=== PATIENT | male | born 1960 | race African-American/Black ===

== ENCOUNTER → 2018-03-04 | Outpatient (CLI) | payer OTHER | LOC: M LRY 16:50 | DX: M17.11 Unilateral primary osteoarthritis, right knee (principal); M25.462 Effusion, left knee; S89.91XA Unspecified injury of right lower leg, initial encounter; W50.2XXA Accidental twist by another person, initial encounter; Y99.0 Civilian activity done for income or pay | CPT/HCPCS: 73564 ==

== ENCOUNTER → 2018-07-15 | Outpatient (CLI) | payer OTHER ==
--- NOTE | 2018-07-15 19:34 | ECGEPIP ---
Stationary ECG Study [facility] Test Date: 2018-07-15 Pat Name: JASON ALVAREZ Department: Room: - Gender: M Community Relations Rep: EMEKA : 1960 Requested By: WENDY Collins Order Number: [id number] Reading MD: Coty Lin Measurements Intervals [place] Rate: 65 P: 32 CA: 175 QRS: -12 QRSD: 83 T: -30 QT: 395 QTc: 412 Interpretive Statements SINUS RHYTHM NONSPECIFIC T-WAVE ABNORMALITY NO PRIOR Electronically Signed On 07-15-2018 19:34:02 EDT by Coty Lin
== END ==
LOC: M EKG 11:43
PROVIDERS: ATTEND Orthopaedic Surgery
DX: Z01.810 Encounter for preprocedural cardiovascular examination (principal); I10 Essential (primary) hypertension; S83.241D Other tear of medial meniscus, current injury, right knee, subsequent encounter

== ENCOUNTER → 2020-06-15 | Outpatient (CLI) | payer OTHER ==
[2020-06-15 12:57] LABS: IMMUNOGLOBULIN E 73.5 IU/ML (<100); IMMUNOGLOBULIN M 24.5 MG/DL (40-230)
[2020-06-18 00:06] LABS: ALPHA 1 ANTITRYPSIN 135 mg/dL (101-187); D001-IgE D pteronyssinus 1.95 kU/L (Class III); E001-IgE Cat Epith/Dander < 0.10 kU/L (Class 0); E003-IGE HORSE EPITHELIA/DAND <0.10 kU/L (Class 0); E005-IgE Dog Dander 0.15 kU/L (Class 0/I); F004-IgE Wheat 0.14 kU/L (Class 0/I); F026-IgE Pork 0.14 kU/L (Class 0/I); F027-IgE Beef < 0.10 kU/L (Class 0); F245-IgE Egg, Whole 0.85 kU/L (Class II); FX02-IgE Food Mix (Sea Foods) Positive (.); G002-IgE Bermuda Grass 0.29 kU/L (Class 0/I); G008-IgE Kentucky Bluegrass 0.23 kU/L (Class 0/I); M001-IgE Penicillium chrysogen < 0.10 kU/L (Class 0); M002 IgE Cladosporium herbaru < 0.10 kU/L (Class 0); M003 IgE Aspergillus fumigatu < 0.10 kU/L (Class 0); M006-IgE Alternaria alternata < 0.10 kU/L (Class 0); T001-IgE Maple/Box Elder < 0.10 kU/L (Class 0); T003-IgE Common Silver Birch < 0.10 kU/L (Class 0); T006-IgE Cedar, Mountain 0.16 kU/L (Class 0/I); T007-IgE Oak, White 0.12 kU/L (Class 0/I); T008-IgE Elm, American < 0.10 kU/L (Class 0); T041-IgE Hickory, White < 0.10 kU/L (Class 0); T070-IgE White Mulberry < 0.10 kU/L (Class 0); W001-IgE Ragweed, Short 0.16 kU/L (Class 0/I); W018-IgE Sheep Sorrel 0.16 kU/L (Class 0/I)
== END ==
LOC: M LAB 11:18
PROVIDERS: ATTEND Nurse Practitioner Family
DX: J30.2 Other seasonal allergic rhinitis (principal); L50.8 Other urticaria; R05 Cough

== ENCOUNTER → 2022-05-12 | Outpatient (CLI) | payer OTHER ==
[~2022-05-12] MED LIST: AMLO10TA PO; BIMA01SOL OU; EZET10TA21 PO; ROSU40TA4 PO; glaucoma drop OU
== END ==
LOC: M LABSMTC 10:22
PROVIDERS: ATTEND Ophthalmology
DX: Z01.812 Encounter for preprocedural laboratory examination (principal); Z20.822 Contact with and (suspected) exposure to COVID-19

== ENCOUNTER 2022-05-14 06:12 | Day surgery (SDC) | payer OTHER ==
[~2022-05-14] VITALS: Ht 172.7 cm; Wt 96.7 kg
[~2022-05-14 06:12] MED LIST changes: +LIDOCAINE 3.5 % 1ML OPHTH TOPICAL GEL OU ONE
[2022-05-14] MEDS ORDERED: mitoMYcin 0.2 MG/VIAL KIT FOR OPHTHALMIC USE As Ordered ONE (06:36)
[2022-05-14] MEDS ORDERED: LIDOCAINE 1% SDV 5ML VIAL As Ordered ONE (06:37)
[2022-05-14] MEDS ORDERED: TOBRADEX OPHTH OINT 3.5 GM As Ordered ONE (06:38)
[2022-05-14] MEDS ORDERED: fentaNYL 100 MCG/2 ML INJECTION As Ordered ONE (07:01)
[2022-05-14] MEDS ORDERED: MIDAZOLAM INJ 2MG/2ML VIAL As Ordered ONE (07:01)
[2022-05-14] MEDS ORDERED: LIDOCAINE 3.5 % 1ML OPHTH TOPICAL GEL As Ordered ONE (07:53)
[2022-05-14 08:20] VITALS: BP 132/70
== END 2022-05-14 08:25 | disposition home or self-care (01) ==
LOC: M SDC 06:12
PROVIDERS: ATTEND Ophthalmology
DX: H40.1110 Primary open-angle glaucoma, right eye, stage unspecified (principal); I10 Essential (primary) hypertension; E78.5 Hyperlipidemia, unspecified; K57.32 Diverticulitis of large intestine without perforation or abscess without bleeding; G47.30 Sleep apnea, unspecified; F43.10 Post-traumatic stress disorder, unspecified; Z88.6 Allergy status to analgesic agent; Z88.5 Allergy status to narcotic agent; Z79.899 Other long term (current) drug therapy
CPT/HCPCS: 66183; C1783; J2250; J3010; J7315

== ENCOUNTER → 2022-05-19 | Outpatient (CLI) | payer OTHER ==
[~2022-05-19] MED LIST changes: -LIDOCAINE 3.5 % 1ML OPHTH TOPICAL GEL OU ONE
== END ==
LOC: M LABSMTC 10:03
PROVIDERS: ATTEND Anesthesiology
DX: Z01.812 Encounter for preprocedural laboratory examination (principal); Z11.52 Encounter for screening for COVID-19

== ENCOUNTER 2022-08-20 06:11 | Day surgery (SDC) | payer OTHER ==
[~2022-08-20] VITALS: Ht 172.7 cm; Wt 92.9 kg
[~2022-08-20 06:11] MED LIST changes: +LIDOCAINE 3.5 % 1ML OPHTH TOPICAL GEL OU ONE; +OMEG10002 PO
[2022-08-20] MEDS ORDERED: mitoMYcin 0.2 MG/VIAL KIT FOR OPHTHALMIC USE As Ordered ONE (06:36)
[2022-08-20] MEDS ORDERED: POVIDONE-IODINE 5% OPHTH PREP SOL 30ML As Ordered ONE (06:36)
[2022-08-20] MEDS ORDERED: TOBRADEX OPHTH OINT 3.5 GM As Ordered ONE (06:36)
[2022-08-20] MEDS ORDERED: LIDOCAINE 1% SDV 5ML VIAL As Ordered ONE (06:38)
[2022-08-20] MEDS ORDERED: MIDAZOLAM INJ 2MG/2ML VIAL As Ordered ONE (07:17)
[2022-08-20] MEDS ORDERED: fentaNYL 100 MCG/2 ML INJECTION As Ordered ONE (07:17)
[2022-08-20 08:01] VITALS: BP 106/71
== END 2022-08-20 08:21 | disposition home or self-care (01) ==
LOC: M SDC 06:11
PROVIDERS: ATTEND Ophthalmology
DX: H40.812 Glaucoma with increased episcleral venous pressure, left eye (principal); I10 Essential (primary) hypertension; K57.92 Diverticulitis of intestine, part unspecified, without perforation or abscess without bleeding; E78.5 Hyperlipidemia, unspecified; F43.10 Post-traumatic stress disorder, unspecified; G47.33 Obstructive sleep apnea (adult) (pediatric); Z88.8 Allergy status to other drugs, medicaments and biological substances; Z79.899 Other long term (current) drug therapy
CPT/HCPCS: 66183; C1783; J2250; J3010; J7315